=== PATIENT | female | born 1980 | race African-American/Black ===

== ENCOUNTER 2020-06-02 07:43 | Emergency (ER) | payer OTHER ==
[~2020-06-02] VITALS: Ht 157.5 cm; Wt 116.6 kg
[2020-06-02] MEDS ORDERED: DEPO-PROVE150 MG/1 M IM (08:01)
[2020-06-02 08:51] LABS: ABSOLUTE NEUTROPHILS 4.1 thou/uL (1.4-8.2); BASOPHILS 0.4 % (0.0-2.0); HEMATOCRIT 33.7 % (37.0-47.0); HEMOGLOBIN 10.5 gm/dL (12.0-15.0); LYMPHOCYTES 34.6 % (24.0-44.0); MCH 22.3 pg (26.0-34.0); MCHC 31.2 g/dL (28.0-37.0); MCV 71.4 fL (80.0-100.0); MONOCYTES 9.3 % (1.0-8.0); PLATELET COUNT 442 thou/uL (150-400); POLYS 54.7 % (36.0-66.0); RBC 4.72 mil/uL (4.20-5.00); WBC 7.5 thou/uL (4.0-11.0)
[2020-06-02 09:05] LABS: ANION GAP 12 mmol/L (7-16); BUN 10 mg/dL (7-18); CALCIUM 8.8 mg/dL (8.5-10.1); CHLORIDE 106 mmol/L (98-107); CO2 23 mmol/L (21-32); GLUCOSE 98 mg/dL (74-106); POTASSIUM 3.6 mmol/L (3.5-5.1); SODIUM 141 mmol/L (136-145)
[2020-06-02 09:12] LABS: ALBUMIN 3.4 g/dL (3.4-5.0); DIRECT BILIRUBIN < 0.1 mg/dL (<0.1-0.2); SGOT 14 U/L (15-37); SGPT 19 U/L (14-59); TOTAL BILIRUBIN 0.4 mg/dL (0.2-1.0); TROPONIN-I <0.06 ng/mL (<0.06)
[2020-06-02 09:52] LABS: ANISOCYTOSIS 1+; MICROCYTES 2+; PLATELET ESTIMATE NORMAL
--- NOTE | 2020-06-02 11:36 | EKG ---
[address] [place] [employer] [place] [address] ELECTROCARDIOGRAM REPORT Name: HERB HASKINS Room #: REG YAW Lowry#: [id number] Admission: 06/02/20 Attend Phys: Discharge: Date of : 80 Report #: [id number] [facility] ED Test Date: 2020-06-02 Test Time: 07:46:46 Pat Name: HERB HASKINS Department: Room: Gender: F English Language Learner Tutor: JOSE MARIA : 1980 Requested By: Jenise Muniz Order Number: [id number] MD: Sebas Benedict Measurements Intervals [place] Rate: 71 P: 68 TX: 155 QRS: 47 QRSD: 89 T: 39 QT: 371 QTc: 404 Interpretive Statements Sinus rhythm No previous ECG available for comparison Electronically Signed On 06-02-2020 11:36:52 [employer] by Sebas Benedict [email or web address] <ELECTRONICALLY SIGNED> By: Sebas Bneedict MD, [facility] 06/02/20 1136 [id number] [id number] Sebas Benedict MD, FACC /EPI
[2020-06-02] MEDS ORDERED: ZOFRAN ODT4 MG PO (11:49)
[2020-06-02] MEDS ORDERED: MOBIC15 MG PO (11:49)
[2020-06-02 11:58] VITALS: BP 116/69
== END 2020-06-02 11:58 | disposition home or self-care (01) ==
LOC: ER 07:43
PROVIDERS: Emergency Medicine
DX: R07.9 Chest pain, unspecified (principal); R20.2 Paresthesia of skin; G43.909 Migraine, unspecified, not intractable, without status migrainosus; Z79.899 Other long term (current) drug therapy; Z88.1 Allergy status to other antibiotic agents; Z88.8 Allergy status to other drugs, medicaments and biological substances